=== PATIENT | male | born 1970 | race Two or more races ===

== ENCOUNTER 2023-08-18 00:46 | Inpatient (IN) | payer OTHER ==
[~2023-08-18] VITALS: Ht 175.3 cm; Wt 70.1 kg
[2023-08-18 03:34] LABS: Basophils # (auto) 0.1 10 ^3/uL (0-0.2); Basophils % (auto) 0.9 % (0.0-2.0); Eosinophils # (auto) 0.3 10 ^3/uL (0-0.8); Eosinophils % (auto) 2.9 % (0.0-7.0); Hematocrit 39.3 % (41.0-53.0); Hemoglobin 13.2 g/dL (13.5-17.5); Lymphocytes % (auto) 19.1 % (10.0-50.0); Mean Corpuscular Hemoglobin 28.2 pg (28.0-32.0); Mean Corpuscular Hgb Conc. 33.6 g/dL (32.0-36.0); Mean Corpuscular Volume 83.8 fL (80.0-100.0); Monocytes # (auto) 0.7 10 ^3/uL (0-1.3); Monocytes % (auto) 6.4 % (0.0-12.0); Neutrophils # (auto) 7.5 10 ^3/uL (1.6-8.6); Neutrophils % (auto) 70.7 % (37.0-80.0); Red Blood Cells 4.69 10^6/uL (4.5-5.90); Red Cell Distribution Width 15.2 % (11.8-14.3); White Blood Cell 10.6 10^3/uL (4.4-10.8)
[2023-08-18 03:42] LABS: Chloride 107 mmol/L (98-107); Potassium 4.1 mmol/L (3.5-5.1); Sodium 136 mmol/L (136-145)
[2023-08-18 03:43] LABS: Anion Gap 7 (5-15); Calcium 9.4 mg/dL (8.7-10.4); Carbon Dioxide 22 mmol/L (20-30)
[2023-08-18 03:48] LABS: BUN/Creatinine Ratio 13.3 (10.0-20.0); Blood Urea Nitrogen 15 mg/dL (9-23); Glucose 164 mg/dL (74-106)
[2023-08-18 05:14] VITALS: PULSE 64; RESP 14; O2SAT 94
[2023-08-18] MEDS: MORPHINE SULFATE 4 MG/ML SYR/VIAL IV ONE (05:34)
[2023-08-18] MEDS ORDERED: ONDANSETRON HCL 4 MG/2 ML VIAL IV PRN (06:00)
[2023-08-18] MEDS ORDERED: hydrALAZINE HCL 20 MG/ML VL IV PRN (06:00)
[2023-08-18] MEDS ORDERED: NITROGLYCERIN 0.4 MG SL TAB SL PRN (06:00)
[2023-08-18] MEDS ORDERED: MORPHINE SULFATE INJ 2 MG/ml SYRG IV PRN (06:00)
[2023-08-18] MEDS ORDERED: VANCOMYCIN PER PHARMACY 0 MG IV SCH (06:00)
[2023-08-18] MEDS ORDERED: DOCUSATE SOD 100 MG CAP PO PRN (06:00)
[2023-08-18] MEDS ORDERED: ACETAMINOPHEN 325 MG TAB PO PRN (06:00)
[2023-08-18] MEDS ORDERED: DEXTROSE (50%) 50ML SYRG IV PRN (06:00)
[2023-08-18] MEDS: SODIUM CHLORIDE 0.9% 1,000 ML IV SCH (06:12)
[2023-08-18] MEDS: PIPERACILLIN-TAZOB 3.375GM 100 ML IV ONE (06:13)
[2023-08-18 06:39] LABS: Basophils # (auto) 0.1 10 ^3/uL (0-0.2); Basophils % (auto) 0.8 % (0.0-2.0); Eosinophils # (auto) 0.3 10 ^3/uL (0-0.8); Eosinophils % (auto) 3.4 % (0.0-7.0); Hematocrit 37.3 % (41.0-53.0); Hemoglobin 12.3 g/dL (13.5-17.5); Lymphocytes # (auto) 1.9 10 ^3/uL (0.4-5.4); Lymphocytes % (auto) 22.4 % (10.0-50.0); Mean Corpuscular Hemoglobin 27.8 pg (28.0-32.0); Mean Corpuscular Hgb Conc. 33.1 g/dL (32.0-36.0); Monocytes # (auto) 0.6 10 ^3/uL (0-1.3); Monocytes % (auto) 6.4 % (0.0-12.0); Neutrophils # (auto) 5.7 10 ^3/uL (1.6-8.6); Red Blood Cells 4.44 10^6/uL (4.5-5.90); Red Cell Distribution Width 15.1 % (11.8-14.3); White Blood Cell 8.6 10^3/uL (4.4-10.8)
[2023-08-18] MEDS: InsuLIN REG 1unit/0.01ml Soln (100units/ml) SC SCH ×2 (07:00→21:26)
[2023-08-18 07:12] LABS: Alanine Aminotransferase 14 U/L (7-40); Alkaline Phosphatase 86 U/L (46-116); Anion Gap 7 (5-15); Aspartate Aminotransferase 11 U/L (13-40); BUN/Creatinine Ratio 12.4 (10.0-20.0); Blood Urea Nitrogen 13 mg/dL (9-23); Calcium 8.9 mg/dL (8.5-10.1); Carbon Dioxide 24 mmol/L (20-30); Chloride 107 mmol/L (98-107); Glucose 118 mg/dL (74-106); Potassium 3.8 mmol/L (3.5-5.1); Sodium 138 mmol/L (136-145)
[2023-08-18 07:13] LABS: Bilirubin, Total 0.2 mg/dL (0.2-1.0); Total Protein 7.2 g/dL (5.7-8.2)
[2023-08-18] MEDS: ACCU-CHEK COMFORT CURVE STRIP VI SCH (07:18)
[2023-08-18] MEDS: MORPHINE SULFATE INJ 2 MG/ml SYRG IV PRN (07:43)
[2023-08-18] MEDS: VANCOMYCIN 1GM/200ML 200 ML IV ONE (09:14)
[2023-08-18] MEDS: ASCORBIC ACID 500 MG TAB PO SCH (09:28)
[2023-08-18] MEDS: ASPirin 81 mg TAB PO SCH (09:29)
[2023-08-18] MEDS: FAMOTIDINE (10MG/ML) 2ML VL IV SCH (09:29)
[2023-08-18] MEDS: ZINC SULFATE 220mg CAP or TAB PO SCH (09:29)
[2023-08-18 14:00] VITALS: BP 153/71; PULSE 63; RESP 20; TEMP 98.3; O2SAT 99
[2023-08-18 15:23] VITALS: BP 153/71; PULSE 63; RESP 20; TEMP 98.3; O2SAT 99
[2023-08-18] MEDS ORDERED: INSLANTI SC (16:07)
[2023-08-18] MEDS ORDERED: METF-370 PO (16:07)
[2023-08-18] MEDS ORDERED: INSLISPI SC (16:07)
[2023-08-18] MEDS ORDERED: ASPI81CH59 PO (16:08)
[2023-08-18] MEDS ORDERED: ATOR-47 PO (16:08)
[2023-08-18] MEDS ORDERED: OMEP1CAP70 PO (16:08)
[2023-08-18] MEDS ORDERED: ATOR80TA PO (16:10)
[2023-08-18] MEDS ORDERED: EMPA1TAB3 PO (16:14)
[2023-08-18] MEDS ORDERED: SEMA2INJ3 SC (16:14)
[2023-08-18] MEDS ORDERED: CLOT1CRE7 TOP (16:14)
[2023-08-18] MEDS ORDERED: ACET-6 PO (16:14)
[2023-08-18] MEDS: PIPERACILLIN-TAZOB 3.375GM 100 ML IV SCH (16:30)
[2023-08-18 17:00] VITALS: BP 149/74; PULSE 67; RESP 18; TEMP 98; O2SAT 95
[2023-08-18] MEDS: VANCOMYCIN 1GM/200ML 200 ML IV SCH (19:24)
[2023-08-18 19:30] VITALS: PULSE 81; RESP 17; O2SAT 97
[2023-08-18 21:00] VITALS: BP 137/72; PULSE 67; RESP 20; TEMP 97.6; O2SAT 95
[2023-08-18] MEDS: ATORVASTATIN 20 MG TAB PO SCH (21:26)
[2023-08-19] VITALS (8 sets, daily range): BP systolic 127–155; BP diastolic 66–78; PULSE 64–78; RESP 16–97; TEMP 97.7–98.6; O2SAT 94–98
[2023-08-19 07:21] LABS: Basophils # (auto) 0.1 10 ^3/uL (0-0.2); Basophils % (auto) 0.6 % (0.0-2.0); Eosinophils # (auto) 0.2 10 ^3/uL (0-0.8); Eosinophils % (auto) 2.7 % (0.0-7.0); Hematocrit 40.5 % (41.0-53.0); Hemoglobin 13.6 g/dL (13.5-17.5); Lymphocytes # (auto) 1.5 10 ^3/uL (0.4-5.4); Lymphocytes % (auto) 17.7 % (10.0-50.0); Mean Corpuscular Hgb Conc. 33.4 g/dL (32.0-36.0); Mean Corpuscular Volume 83.7 fL (80.0-100.0); Monocytes # (auto) 0.5 10 ^3/uL (0-1.3); Monocytes % (auto) 6.1 % (0.0-12.0); Neutrophils # (auto) 6.2 10 ^3/uL (1.6-8.6); Neutrophils % (auto) 72.9 % (37.0-80.0); Red Blood Cells 4.84 10^6/uL (4.5-5.90); Red Cell Distribution Width 15.3 % (11.8-14.3); White Blood Cell 8.6 10^3/uL (4.4-10.8)
[2023-08-19 07:51] LABS: Alanine Aminotransferase 15 U/L (7-40); Albumin 3.9 g/dL (3.2-4.8); Alkaline Phosphatase 88 U/L (46-116); Anion Gap 4 (5-15); Aspartate Aminotransferase 13 U/L (13-40); BUN/Creatinine Ratio 10.1 (10.0-20.0); Bilirubin, Total 0.2 mg/dL (0.2-1.0); Blood Urea Nitrogen 10 mg/dL (9-23); Calcium 9.3 mg/dL (8.5-10.1); Carbon Dioxide 25 mmol/L (20-30); Chloride 106 mmol/L (98-107); Glucose 122 mg/dL (74-106); Potassium 4.2 mmol/L (3.5-5.1); Sodium 135 mmol/L (136-145); Total Protein 7.2 g/dL (5.7-8.2)
[2023-08-19] MEDS: VANCOMYCIN 1GM/200ML 200 ML IV SCH (21:51)
[2023-08-19] MEDS: HYDROcodone-ACET 5/325MG TAB PO PRN (22:01)
[2023-08-20] VITALS (8 sets, daily range): BP systolic 116–153; BP diastolic 70–80; PULSE 64–73; RESP 17–20; TEMP 97.4–98.3; O2SAT 97–98
[2023-08-21] VITALS (8 sets, daily range): BP systolic 103–148; BP diastolic 48–89; PULSE 57–81; RESP 18–20; TEMP 97.6–98.1; O2SAT 96–99
[2023-08-21 06:25] LABS: Basophils # (auto) 0.1 10 ^3/uL (0-0.2); Basophils % (auto) 0.8 % (0.0-2.0); Eosinophils # (auto) 0.3 10 ^3/uL (0-0.8); Eosinophils % (auto) 3.2 % (0.0-7.0); Hematocrit 39.3 % (41.0-53.0); Lymphocytes % (auto) 21.5 % (10.0-50.0); Mean Corpuscular Hemoglobin 27.6 pg (28.0-32.0); Mean Corpuscular Hgb Conc. 33.1 g/dL (32.0-36.0); Mean Corpuscular Volume 83.4 fL (80.0-100.0); Monocytes # (auto) 0.7 10 ^3/uL (0-1.3); Monocytes % (auto) 7.8 % (0.0-12.0); Neutrophils # (auto) 6.2 10 ^3/uL (1.6-8.6); Neutrophils % (auto) 66.7 % (37.0-80.0); Nucleated Red Blood Cells % 0.1 %; Red Blood Cells 4.71 10^6/uL (4.5-5.90); Red Cell Distribution Width 15.1 % (11.8-14.3); White Blood Cell 9.3 10^3/uL (4.4-10.8)
[2023-08-21] MEDS: VANCOMYCIN 1GM/200ML 200 ML IV SCH (23:45)
[2023-08-22] VITALS (8 sets, daily range): BP systolic 130–142; BP diastolic 56–84; PULSE 65–83; RESP 17–20; TEMP 97.7–98.2; O2SAT 94–99
[2023-08-22 10:53] LABS: INR 0.96 (0.9-1.15); Partial Thromboplastin Time 27.2 SEC (24.5-34.5); Prothrombin Time 10.2 sec (9.3-11.8)
[2023-08-22] MEDS: DAPTOmycin 500 MG in SODIUM CHL 0.9% 50 ML IV SCH (17:16)
[2023-08-22] MEDS: LIDOCAINE 1% (LOCAL ANESTH.) PF 5ml SDV ID ONE (18:00)
[2023-08-22] MEDS: SODIUM CHLOR 0.9% PF (SALINE LOCK) 10ML VIAL/SYR IV SCH (22:15)
[2023-08-23] VITALS (8 sets, daily range): BP systolic 122–152; BP diastolic 59–88; PULSE 63–83; RESP 16–20; TEMP 97.4–98.7; O2SAT 97–99
[2023-08-23] MEDS: INSULIN LANTUS (GLARGINE) 1 /0.01ml (100units/ml) SC ONE (18:53)
[2023-08-23] MEDS: INSULIN LANTUS (GLARGINE) 1 /0.01ml (100units/ml) SC SCH (22:08)
[2023-08-24] VITALS (8 sets, daily range): BP systolic 110–172; BP diastolic 48–88; PULSE 69–78; RESP 17–19; TEMP 97–98.4; O2SAT 96–99
[2023-08-25 05:00] VITALS: BP 103/51; PULSE 70; RESP 18; TEMP 97.6; O2SAT 96
[2023-08-25 08:00] VITALS: PULSE 68; RESP 16; O2SAT 96
[2023-08-25 09:00] VITALS: BP 99/59; PULSE 68; RESP 16; TEMP 98.1; O2SAT 96
[2023-08-25 13:00] VITALS: BP 146/80; PULSE 68; RESP 18; TEMP 97; O2SAT 97
== END 2023-08-25 16:15 | disposition left against medical advice (07) | DRG 344 ==
LOC: ER 00:46 → OVERFLOW 06:00 → WEST WING 13:05
PROVIDERS: ADMIT Nurse Practitioner Family; ATTEND Internal Medicine Geriatric Medicine
PROC: 02HV33Z Insertion of Infusion Device into Superior Vena Cava, Percutaneous Approach (ICD-10-PCS; principal; 2023-08-22)
PROC: B548ZZA Ultrasonography of Superior Vena Cava, Guidance (ICD-10-PCS; 2023-08-22)
DX: E11.69 Type 2 diabetes mellitus with other specified complication (principal); M86.8X7 Other osteomyelitis, ankle and foot; R78.81 Bacteremia; E11.621 Type 2 diabetes mellitus with foot ulcer; E11.51 Type 2 diabetes mellitus with diabetic peripheral angiopathy without gangrene; E11.628 Type 2 diabetes mellitus with other skin complications; L03.116 Cellulitis of left lower limb; L97.529 Non-pressure chronic ulcer of other part of left foot with unspecified severity; E78.5 Hyperlipidemia, unspecified; I10 Essential (primary) hypertension; Z53.29 Procedure and treatment not carried out because of patient's decision for other reasons; E11.65 Type 2 diabetes mellitus with hyperglycemia; Z89.422 Acquired absence of other left toe(s); Z83.3 Family history of diabetes mellitus; Z87.891 Personal history of nicotine dependence
CPT/HCPCS: 36415; 36569; 73630; 73718; 80048; 80053; 80202; 82550; 82565; 82962; 85025; 85610; 85730; 87040; 87077; 87186; 87205; 93926; G0378; J1815; J2543; J3490